=== PATIENT | female | born 1990 | race American Indian/Alaskan Native ===

== ENCOUNTER 2019-02-10 21:41 | Emergency (ER) | payer MEDICAID ==
[2019-02-10 21:56] VITALS: BP 125/68
--- NOTE | 2019-02-10 21:57 | Emergency Department Report ---
Chief Complaint: Vaginal Bleeding Stated Complaint: BLEEDING Time Seen by Provider: 02/10/19 21:53 - HPI History of Present Illness: pt presents with heavy vaginal bleeding that began 7 PM suprapubic abd cramping pts states she has used 14 pads in the last three hours had an last month on 01/15/19 /P:2/A:1 no PMHx no medication use MSE screening note: Focused history and physical exam performed. Due to findings the following was ordered: UA, urine preg, US transvaginal/pelvic ED Disposition for MSE Condition: Stable
[2019-02-10 22:38] LABS: Basophils # (Auto) 0.1 K/mm3 (0.0-0.1); Basophils % (Auto) 1.2 % (0.0-1.8); Eosinophils # (Auto) 0.1 K/mm3 (0.0-0.4); Eosinophils % (Auto) 0.8 % (0.0-4.3); Hematocrit 34.8 % (30.3-42.9); Hemoglobin 11.6 gm/dl (10.1-14.3); Lymphocytes # (Auto) 0.8 K/mm3 (1.2-5.4); Lymphocytes % (Auto) 9.5 % (13.4-35.0); Mean Corpuscular HGB Conc 33 % (30-34); Mean Corpuscular Volume 87 fl (79-97); Monocytes # (Auto) 0.5 K/mm3 (0.0-0.8); Monocytes % (Auto) 5.6 % (0.0-7.3); Platelet Count 242 K/mm3 (140-440); Red Blood Count 4.02 M/mm3 (3.65-5.03); Red Cell Distribution Width 13.9 % (13.2-15.2)
[2019-02-11 00:37] LABS: Bilirubin,Urine NEG (Negative); Blood,Urine LG (Negative); Color,Urine Yellow (Yellow); Mucus,Urine 3+ /HPF
[2019-02-11 00:38] LABS: RBC,Urine > 182.0 /HPF (0.0-6.0)
[2019-02-11 00:55] LABS: HCG Qualitative,Urine Positive (Negative)
--- NOTE | 2019-02-11 04:40 | Ultrasound Report ---
PROCEDURE: US PELVIC COMPLETE TECHNIQUE: Real-time transabdominal sonography in multiple planes of the pelvis was performed. The p elvic structures were not optimally visualized. Transvaginal sonography was then performed to better evaluate the structures and/or abnormalities described below with image documentation. Grayscale, col or flow Doppler imaging, and velocity spectral waveform analysis of the ovaries was employed (duplex imaging). HISTORY: heavy vaginal bleeding, in Jan 2019 COMPARISONS: None . FINDINGS: UTERUS Size: 12.9 x 7.8 x 9 cm. Endometrial thickness: 12.5 mm. Orientation: anteverted. Cervix: Normal. Fibroids/masses: There are uterine fibroids measuring up to 3.6 cm.. RIGHT Ovary: 3.3 x 2.5 x 2.6 cm. Appearance: There is an 11 mm complex cyst.. Doppler images: Normal spectral waveforms and color flow images of the arterial inflow and venous out flow.. LEFT Ovary: 3.8 x 3.6 x 3.7 cm. Appearance: There is a 3.5 cm cyst.. Doppler images: Normal spectral waveforms and color flow images of the arterial inflow and venous out flow.. Pelvic fluid: There is minimal pelvic fluid.. IMPRESSION: There are uterine fibroids. There is no ovarian torsion. There are bilateral ovarian cys ts. There is minimal nonspecific free pelvic fluid.. This document is electronically signed by Paulino Panda MD., February 11 2019 04:38:09 AM ET
--- NOTE | 2019-02-11 05:34 | Emergency Department Report ---
ED Female HPI - General Chief complaint: Vaginal Bleeding Stated complaint: BLEEDING Time Seen by Provider: 02/10/19 21:53 Source: patient Mode of arrival: Ambulatory Limitations: No Limitations - Related Data Previous Rx's Medication Instructions Recorded Last Taken Type Ibuprofen 800 mg PO TID PRN #30 tablet 02/11/19 Unknown Rx Allergies Allergy/AdvReac Type Severity Reaction Status Date / Time No Known Allergies Allergy Unverified 02/10/19 21:52 ED Review of Systems ROS: Stated complaint: BLEEDING Other details as noted in HPI ED Past Medical Hx - Past Medical History Previous Medical History?: No - Surgical History Past Surgical History?: No - Social History Smoking Status: Never Smoker Substance Use Type: None - Medications Home Medications: Home Medications Medication Instructions Recorded Confirmed Last Taken Type Ibuprofen 800 mg PO TID PRN #30 tablet 02/11/19 Unknown Rx ED Physical Exam - General Limitations: No Limitations ED Course Vital Signs 02/10/19 21:54 Temperature 98 F Pulse Rate 90 Respiratory 18 Rate Blood Pressure 125/68 O2 Sat by Pulse 100 Oximetry ED Medical Decision Making - Lab Data Result diagrams: 02/10/19 22:03 Labs 02/10/19 02/11/19 02/11/19 22:03 00:06 04:13 WBC 8.1 RBC 4.02 Hgb 11.6 Hct 34.8 MCV 87 MCH 29 MCHC 33 RDW 13.9 Plt Count 242 Lymph % (Auto) 9.5 L Ray % (Auto) 5.6 Eos % (Auto) 0.8 Baso % (Auto) 1.2 Lymph # 0.8 L Ray # 0.5 Eos # 0.1 Baso # 0.1 Seg Neutrophils % 82.9 H Seg Neutrophils # 6.7 HCG, Quant 626.8 H Urine Color Yellow Urine Turbidity Cloudy Urine pH 5.0 Ur Specific Rudd 1.036 H Urine Protein 30 mg/dl Urine Glucose (UA) Neg Urine Ketones Neg Urine Blood Lg Urine Nitrite Neg Urine Bilirubin Neg Urine Urobilinogen 4.0 Ur Leukocyte Esterase Neg Urine WBC (Auto) 27.0 H Urine RBC (Auto) > 182.0 U Epithel Cells (Auto) 3.0 Urine Mucus 3+ Urine HCG, Qual Positive A - Radiology Data Radiology results: report reviewed, image reviewed PROCEDURE: US PELVIC COMPLETE TECHNIQUE: Real-time transabdominal sonography in multiple planes of the pelvis was performed. The pelvic structures were not optimally visualized. Transvaginal sonography was then performed to better evaluate the structures and/or abnormalities described below with image documentation. Grayscale, color flow Doppler imaging, and velocity spectral waveform analysis of the ovaries was employed (duplex imaging). HISTORY: heavy vaginal bleeding, in Jan 2019 COMPARISONS: None . FINDINGS: UTERUS Size: 12.9 x 7.8 x 9 cm. Endometrial thickness: 12.5 mm. Orientation: anteverted. Cervix: Normal. Fibroids/masses: There are uterine fibroids measuring up to 3.6 cm.. RIGHT Ovary: 3.3 x 2.5 x 2.6 cm. Appearance: There is an 11 mm complex cyst.. Doppler images: Normal spectral waveforms and color flow images of the arterial inflow and venous outflow.. LEFT Ovary: 3.8 x 3.6 x 3.7 cm. Appearance: There is a 3.5 cm cyst.. Doppler images: Normal spectral waveforms and color flow images of the arterial inflow and venous outflow.. Pelvic fluid: There is minimal pelvic fluid.. IMPRESSION: There are uterine fibroids. There is no ovarian torsion. There are bilateral ovarian cysts. There is minimal nonspecific free pelvic fluid.. This document is electronically signed by Jeremi Sanabria MD., February 11 2019 04:38:09 AM ET Transcribed By: CO Dictated By: JEREMI SANABRIA MD Electronically Authenticated By: JEREMI SANABRIA MD Signed Date/Time: 02/11/19 0440 - Medical Decision Making pt has on 01/15/2019, presents for vaginal bleeding , states she thinks she is , US: right ovarian cyst, left ovarian cyst, Uteriner fibroids, no IUP or ectopic , hc, there is minimal vaginal bleeding at this time this is likely menses versus miscarriage, pt will follow up with OBGYN tomorrow pt verbalized agreement and understanding of dissharge plan, pt for dc to home in stable condition at this time. Critical care attestation.: If time is entered above; I have spent that time in minutes in the direct care of this critically ill patient, excluding procedure time. ED Disposition Clinical Impression: Fibroids, Vaginal bleeding Ovarian cyst Qualifiers: Laterality: bilateral Qualified Code(s): N83.201 - Unspecified ovarian cyst, right side; N83.202 - Unspecified ovarian cyst, left side Disposition: TO HOME OR SELFCARE Is pt being admited?: No Does the pt Need Aspirin: No Condition: Stable Instructions: Uterine Fibroids (ED), Ovarian Cyst (ED), Dysmenorrhea (ED) Prescriptions: Ibuprofen 800 mg PO TID PRN #30 tablet PRN Reason: pain Referrals: YON THOMPSON MD [Staff Physician] - 3-5 Days Forms: Work/School Release Form(ED) Time of Disposition: 05:42
== END 2019-02-11 05:45 | disposition home or self-care (01) ==
LOC: ED 21:41
DX: N83.201 Unspecified ovarian cyst, right side (principal); N83.202 Unspecified ovarian cyst, left side; D25.9 Leiomyoma of uterus, unspecified
CPT/HCPCS: 36415; 76830; 76856; 81001; 81025; 84702; 85025

== ENCOUNTER 2019-11-06 15:32 | Emergency (ER) | payer MEDICAID ==
[2019-11-06 15:46] VITALS: BP 111/58
[2019-11-06] MEDS ORDERED: IPRATROPIUM/ALBUTEROL SULFATE 3 ML AMPUL.NEB IH ONE (19:54)
--- NOTE | 2019-11-06 19:59 | Emergency Department Report ---
- General Chief Complaint: Headache Stated Complaint: FLU SYM/BODY ACHES Time Seen by Provider: 11/06/19 19:52 Source: patient Mode of arrival: Ambulatory Limitations: No Limitations - History of Present Illness Initial Comments: Patient is a 28-year-old Mary female with no significant past medical history who is presenting with fever and cough. Patient states that her cough is present for 4 days. Patient has associated shortness of breath. Patient states she has chills and sweating profusely at night which is waking her up. Patient also has mild sore throat which she states is irritated sensation as well as a headache. Cough is dry however when she coughs she does hear quite a bit of rattling in the chest. Patient's shortness of breath is worse with ambu lation. - Related Data Previous Rx's Medication Instructions Recorded Last Taken Type Ibuprofen [Ibuprofen 800] 800 mg PO TID PRN #30 tablet 02/11/19 Unknown Rx ALBUTEROL Inhaler (OR & NICU) 2 puff IH QID PRN #1 inhalation 11/06/19 Unknown Rx [ProAir HFA Inhaler] Fluticasone [Flonase] 1 spray NS QDAY #1 bottle 11/06/19 Unknown Rx guaiFENesin/CODEINE [Robitussin AC] 5 ml PO Q6HR PRN #100 oral.liqd 11/06/19 Unknown Rx predniSONE [Deltasone] 20 mg PO QDAY #5 tab 11/06/19 Unknown Rx Allergies Allergy/AdvReac Type Severity Reaction Status Date / Time No Known Allergies Allergy Unverified 02/10/19 21:52 ED Review of Systems ROS: Stated complaint: FLU SYM/BODY ACHES Other details as noted in HPI Comment: All other systems reviewed and negative ED Past Medical Hx - Past Medical History Previous Medical History?: No - Surgical History Past Surgical History?: Yes Additional Surgical History: - Social History Smoking Status: Never Smoker Substance Use Type: None - Medications Home Medications: Home Medications Medication Instructions Recorded Confirmed Last Taken Type Ibuprofen [Ibuprofen 800] 800 mg PO TID PRN #30 tablet 02/11/19 Unknown Rx ALBUTEROL Inhaler (OR & NICU) 2 puff IH QID PRN #1 inhalation 11/06/19 Unknown Rx [ProAir HFA Inhaler] Fluticasone [Flonase] 1 spray NS QDAY #1 bottle 11/06/19 Unknown Rx guaiFENesin/CODEINE [Robitussin AC] 5 ml PO Q6HR PRN #100 oral.liqd 11/06/19 Unknown Rx predniSONE [Deltasone] 20 mg PO QDAY #5 tab 11/06/19 Unknown Rx ED Physical Exam - General Limitations: No Limitations General appearance: alert, in no apparent distress - Head Head exam: Present: atraumatic, normocephalic - Eye Eye exam: Present: normal appearance, PERRL, EOMI - ENT ENT exam: Present: mucous membranes moist - Neck Neck exam: Present: normal inspection - Respiratory Respiratory exam: Present: respiratory distress, wheezes, rhonchi. Absent: normal lung sounds bilaterally - Cardiovascular Cardiovascular Exam: Present: normal rhythm, tachycardia. Absent: systolic murmur, diastolic murmur, rubs, gallop - GI/Abdominal GI/Abdominal exam: Present: soft, normal bowel sounds. Absent: distended, tenderness, guarding, rebound - Extremities Exam Extremities exam: Present: normal inspection - Back Exam Back exam: Present: normal inspection - Neurological Exam Neurological exam: Present: alert, oriented X3 - Psychiatric Psychiatric exam: Present: normal affect, normal mood - Skin Skin exam: Present: warm, dry, intact, normal color. Absent: rash ED Course Vital Signs 11/06/19 11/06/19 11/06/19 15:45 15:52 21:45 Temperature 100.7 F H 100.7 F H Pulse Rate 113 H 108 H Respiratory 16 18 16 Rate Blood Pressure 111/58 111/58 O2 Sat by Pulse 97 97 Oximetry - Reevaluation(s) Reevaluation #1: 11/06/19 19:58 Patient with uncontrollable cough with wheezing and rhonchi. Patient given to do a prednisone and a chest x-ray will be ordered to rule out atypical pneumonia. ED Medical Decision Making - Radiology Data CHEST PA AND LATERAL VIEWS INDICATION: cough with high fever. COMPARISON: None. FINDINGS: Support devices: None. Heart: Within normal limits. Lungs/Pleura: No acute pulmonary or pleural findings. IMPRESSION: 1. No significant abnormality. Signer Name: Mike Chamberlain MD Signed: 11/06/2019 8:19 PM Workstation Name: [email or web address] - Medical Decision Making She received neb treatment and is feeling much improved. Her wheezing has resolved. Patient be discharged home with medication for symptomatically. Critical care attestation.: If time is entered above; I have spent that time in minutes in the direct care of this critically ill patient, excluding procedure time. ED Disposition Clinical Impression: Bronchospasm Acute bronchitis Qualifiers: Bronchitis organism: unspecified organism Qualified Code(s): J20.9 - Acute bronchitis, unspecified Disposition: DC-01 TO HOME OR SELFCARE Is pt being admited?: No Does the pt Need Aspirin: No Condition: Stable Instructions: Acute Bronchitis (ED) Referrals: PRIMARY CARE, [Primary Care Provider] - 3-5 Days Time of Disposition: 22:13
--- NOTE | 2019-11-06 20:23 | XRay Report ---
CHEST PA AND LATERAL VIEWS INDICATION: cough with high fever. COMPARISON: None. FINDINGS: Support devices: None. Heart: Within normal limits. Lungs/Pleura: No acute pulmonary or pleural findings. IMPRESSION: 1. No significant abnormality. Signer Name: Mike Chamberlain MD Signed: 11/06/2019 8:19 PM Workstation Name: [email or web address]
[2019-11-06] MEDS ORDERED: ACETAMINOPHEN 325 MG TAB PO ONE (21:02)
== END 2019-11-06 22:27 | disposition home or self-care (01) ==
LOC: ED 15:32
DX: J20.9 Acute bronchitis, unspecified (principal); J98.01 Acute bronchospasm; Z79.899 Other long term (current) drug therapy
CPT/HCPCS: 71046; 94640; 94644

== ENCOUNTER 2019-12-20 09:11 | Emergency (ER) | payer MEDICAID ==
[2019-12-20 09:16] VITALS: BP 117/66
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
== END 2019-12-20 10:54 | disposition left against medical advice (07) ==
LOC: ED 09:11
DX: M54.9 Dorsalgia, unspecified (principal)
CPT/HCPCS: 99281